=== PATIENT | female | born 2000 | race Caucasian/White ===

== ENCOUNTER 2024-06-24 08:56 | Emergency (ER) | payer MEDICAID ==
[~2024-06-24] VITALS: Ht 157.5 cm; Wt 75.0 kg
[2024-06-24 09:25] VITALS: TEMP 37.1; O2SAT 99
[2024-06-24 10:13] LABS: BASOPHILS % 0.9 % (0.0-2.0); EOSINOPHILS % 2.2 % (0.0-5.0); HEMATOCRIT. 24.6 % (36.0-48.0); HEMOGLOBIN. 7.9 g/dL (12.0-16.0); LYMPHOCYTES % 29.4 % (20.0-50.0); MEAN CORPUSCULAR HEMOGLOBIN 26.4 pg (28.0-32.0); MEAN CORPUSCULAR VOLUME 82.5 fL (81.0-99.0); MEAN PLATELET VOLUME 7.5 fl (7.4-10.4); MONOCYTES % 7.2 % (2.0-8.0); NEUTROPHILS % 60.3 % (40.0-76.0); PLATELET 372 x1000/uL (130-400); RED BLOOD CELL COUNT 2.98 mill/uL (4.2-5.4); RED CELL DISTRIBUTION WIDTH 14.4 % (11.6-14.6); WHITE BLOOD COUNT 4.2 x1000/uL (4.5-11.0)
[2024-06-24 10:31] VITALS: BP 114/71; PULSE 76; RESP 16; O2SAT 100
[2024-06-24] MEDS: ACETAMINOPHEN 325MG TABLET PO ONE (10:31)
[2024-06-24] MEDS ORDERED: FERR325T6 MT (11:46)
[2024-06-24 12:27] LABS: UCG KIT LOT# 888041; UCG SCREEN NEGATIVE
== END 2024-06-24 11:55 | disposition home or self-care (01) ==
LOC: ER 09:12
DX: D64.9 Anemia, unspecified (principal); R51.9 Headache, unspecified
CPT/HCPCS: 36415; 81025; 85025; 86850; 86900; 99283